=== PATIENT | male | born 1940 | race Hispanic/Latino ===

== ENCOUNTER 2016-10-04 20:09 | Inpatient (IN) | payer MEDICARE, OTHER, BC ==
[2016-10-04] MEDS ORDERED: Sodium Chloride 0.9% 1,000 ML IV ONE (20:37)
--- NOTE | 2016-10-04 21:06 | C.PDOC ---
History Of Present Illness Pt c/o hematuria. He has a Kimball catheter in place, but urine is bloody. Time Seen by Provider: 10/04/16 20:29 Chief Complaint (Nursing): Male Genitourinary History Per: Patient Onset/Duration Of Symptoms: Days (1) Current Symptoms Are (Timing): Worse Severity: Moderate Quality Of Discomfort: Unable To Describe Associated Symptoms: Urinary Symptoms Alleviating Factors: None Additional History Per: Prior Records Past Medical History Reviewed: Historical Data, Nursing Documentation, Vital Signs Vital Signs: Last Vital Signs Temp 99.1 F 10/04/16 20:15 Pulse 97 H 10/04/16 20:15 Resp 16 10/04/16 20:15 BP 150/74 10/04/16 20:15 Pulse Ox 94 L 10/04/16 23:25 - Medical History PMH: Benign Prostatic Hyperplasia (?) Family History: States: Unknown Family Hx - Social History Hx Alcohol Use: Yes Hx Substance Use: No - Immunization History Hx Tetanus Toxoid Vaccination: No Hx Influenza Vaccination: No Hx Pneumococcal Vaccination: No Review Of Systems Except As Marked, All Systems Reviewed And Found Negative. Constitutional: Negative for: Fever, Weakness Cardiovascular: Negative for: Chest Pain Respiratory: Negative for: Shortness of Breath Gastrointestinal: Negative for: Vomiting, Abdominal Pain Genitourinary: Positive for: Hematuria. Negative for: Scrotal Pain Musculoskeletal: Negative for: Neck Pain, Back Pain Skin: Negative for: Rash Neurological: Negative for: Weakness, Numbness, Seizures, Altered Mental Status Physical Exam - Physical Exam Appears: Non-toxic, No Acute Distress Skin: Normal Color, Warm, Dry Head: Atraumatic, Normacephalic Eye(s): bilateral: PERRL, EOMI Neck: Normal ROM, Supple Cardiovascular: Rhythm Regular Respiratory: Normal Breath Sounds, No Accessory Muscle Use Gastrointestinal/Abdominal: Soft, No Tenderness, No Distention Back: No CVA Tenderness Male Genital: No Testicular Tenderness, No Testicular Swelling, No Inguinal Tenderness, No Inguinal Swelling, No Scrotal Swelling, Other (Kimball catheter in place draining bloody urine.) Extremity: Normal ROM, No Pedal Edema, No Calf Tenderness Neurological/Psych: Oriented x3, Normal Motor, Normal Sensation ED Course And Treatment - Laboratory Results Result Diagrams: 10/04/16 21:18 10/04/16 21:18 Lab Interpretation: Abnormal Interpretation Of Abnormal: Mild hypnatremia ECG: Interpreted By Me, Viewed By Me ECG Interpretation: No Acute Changes Rate From EC O2 Sat by Pulse Oximetry: 94 - Radiology CXR: Interpreted by Me, Viewed By Me CXR Interpretation: Yes: No Acute Disease - Physician Consult Information Physician Contacted: Shelley Leonardo Outcome Of Conversation: He wants to take pt to the OR tomorrow for Cystoscopy. Progress - Interventions Interventions:: Observation, Intravenous fluid - Data Reviewed Data Reviewed: Lab, Diagnostic imaging, EKG, Old records - Patient Status Patient status: Partially improved - Continuity of Care Discussed patient case with:: Patient, ED Nurse, On-call PMD-pt unassigned Discussed pt. case with education consultant/specialty: Urology - Patient Plan Patient Plan: Admission Disposition Discussed With : Lisa Kaplan Comment: She accepted pt on her service and gave admitting orders to the nurse. Doctor Will See Patient In The: Hospital Counseled Patient/Family Regarding: Studies Performed, Diagnosis - Disposition Disposition: HOSPITALIZED Disposition Time: 23:00 Condition: FAIR - Clinical Impression Clinical Impression: Hematuria
[2016-10-04] MEDS ORDERED: Sodium Chloride 0.9% 1,000 ML ONE (21:18)
[2016-10-04 21:30] LABS: BASO % 0.4 % (0.0-2.0); EOS % 0.1 % (0.0-4.0); HEMATOCRIT 36.5 % (35.0-51.0); LYMPH # 0.8 K/uL (1.0-4.3); LYMPH % 9.3 % (20.0-40.0); MEAN CELL VOLUME 84.8 fL (80.0-94.0); MEAN CORPUSCULAR HEMOGLOBIN 28.8 pg (27.0-31.0); MEAN PLATELET VOLUME 8.5 fL (7.2-11.7); MONO # 1.1 K/uL (0.0-0.8); PLATELET COUNT 323 K/uL (130-400); WHITE BLOOD COUNT 8.6 K/uL (4.8-10.8)
[2016-10-04 21:34] LABS: CHLORIDE 88 mmol/L (98-107)
[2016-10-04 21:35] LABS: POTASSIUM 4.2 mmol/L (3.6-5.2); SODIUM 121 mmol/L (132-148)
[2016-10-04 21:37] LABS: AST/SGOT 46 U/L (17-59); BILIRUBIN,TOTAL 0.8 mg/dL (0.2-1.3); CARBON DIOXIDE 22 mmol/L (22-30); GFR AFRICAN-AMERICAN > 60; RBC URINE 61579 /hpf (0-3); URINE BACTERIA MOD (<OCC); URINE BILIRUBIN NEGATIVE (NEGATIVE); URINE BLOOD 3+ (NEGATIVE); URINE COLOR Yellow (YELLOW); URINE GLUCOSE (UA) 1+ mg/dL (Normal); URINE KETONE 1+ mg/dL (NEGATIVE); URINE PROTEIN 2+ mg/dL (NEGATIVE); URINE UROBILINOGEN NORMAL mg/dL (0.2-1.0); WBC URINE 68 /hpf (0-5)
[2016-10-04 21:38] LABS: ALB/GLOB RATIO 1.4 (1.0-2.1); ALKALINE PHOSPHATASE 59 U/L (38-126); ALT/SGPT 45 U/L (21-72); BLOOD UREA NITROGEN 10 mg/dL (9-20); CALCIUM 7.8 mg/dl (8.6-10.4); GLUCOSE,RANDOM 104 mg/dL (75-110); TOTAL PROTEIN 6.3 g/dL (6.3-8.3); URINE LEUKOCYTE ESTERASE 1+ Leu/uL (Negative)
[2016-10-04 21:43] LABS: INR 1.3
[2016-10-04 23:21] LABS: LARGE PLATELETS PRESENT; NEUTROPHIL 71 % (50-75); SMUDGE CELLS PRESENT; TOTAL CELLS COUNTED 100
[2016-10-04] MEDS: Dextrose 5%/0.45% NS 1,000 ML IV SCH (23:51)
[2016-10-05 07:36] LABS: BASO % 0.3 % (0.0-2.0); EOS % 0.4 % (0.0-4.0); LYMPH # 0.8 K/uL (1.0-4.3); LYMPH % 11.8 % (20.0-40.0); MEAN CELL VOLUME 84.3 fL (80.0-94.0); MEAN CORPUSCULAR HEMOGLOBIN 29.3 pg (27.0-31.0); MEAN CORPUSCULAR HGB CONC 34.7 g/dL (33.0-37.0); MEAN PLATELET VOLUME 8.7 fL (7.2-11.7); MONO # 1.2 K/uL (0.0-0.8); MONO % 18.3 % (0.0-10.0); RED CELL DISTRIBUTION WIDTH 12.4 % (11.5-14.5); WHITE BLOOD COUNT 6.6 K/uL (4.8-10.8)
[2016-10-05 07:59] LABS: CHLORIDE 92 mmol/L (98-107); SODIUM 125 mmol/L (132-148)
[2016-10-05 08:00] LABS: POTASSIUM 4.3 mmol/L (3.6-5.2)
[2016-10-05 08:02] LABS: ALB/GLOB RATIO 1.3 (1.0-2.1); ALKALINE PHOSPHATASE 51 U/L (38-126); ALT/SGPT 39 U/L (21-72); AST/SGOT 41 U/L (17-59); BILIRUBIN,TOTAL 0.7 mg/dL (0.2-1.3); BLOOD UREA NITROGEN 7 mg/dL (9-20); CALCIUM 7.6 mg/dl (8.6-10.4); CARBON DIOXIDE 25 mmol/L (22-30); GFR AFRICAN-AMERICAN > 60; GLUCOSE,RANDOM 102 mg/dL (75-110); TOTAL PROTEIN 5.6 g/dL (6.3-8.3)
--- NOTE | 2016-10-05 08:38 | RAD ---
HISTORY: Pre-op COMPARISON: No prior. FINDINGS: LUNGS: No active pulmonary disease. PLEURA: No significant pleural effusion identified, no pneumothorax apparent. CARDIOVASCULAR: Normal. OSSEOUS STRUCTURES: No significant abnormalities. VISUALIZED UPPER ABDOMEN: Normal. OTHER FINDINGS: None. IMPRESSION: No active disease.
--- NOTE | 2016-10-05 10:00 | CP.PCM.HP ---
History of Present Illness - History of Present Illness History of Present Illness: pt came in for hematurea and [place] of foly cath by clots Present on Admission - Present on Admission Any Indicators Present on Admission: Yes Urinary Catheter: Yes Review of Systems - Review of Systems Systems not reviewed;Unavailable: Acuity of Condition - Constitutional Constitutional: As Per HPI - EENT Eyes: As Per HPI Ears: As Per HPI Nose/Mouth/Throat: As Per HPI - Cardiovascular Cardiovascular: As Per HPI - Respiratory Respiratory: As Per HPI - Gastrointestinal Gastrointestinal: As Per HPI - Genitourinary Genitourinary: Difficulty Urinating Additional comments: f cath cloged - Integumentary Integumentary: As Per HPI - Neurological Neurological: As Per HPI - Psychiatric Psychiatric: As Per HPI - Endocrine Endocrine: As Per HPI, Polydipsia Past Patient History - Past Medical History & Family History Past Medical History?: No - Past Social History Smoking Status: Former Smoker - MUSCULOSKELETAL/RHEUMATOLOGICAL Hx Falls: No - PSYCHIATRIC Hx Substance Use: No - SURGICAL HISTORY Hx Surgeries: No - ANESTHESIA Hx Anesthesia: No Meds Allergies/Adverse Reactions: Allergies Allergy/AdvReac Type Severity Reaction Status Date / Time No Known Allergies Allergy Verified 10/04/16 20:19 Physical Exam - Constitutional Appears: Non-toxic - Head Exam Head Exam: NORMAL INSPECTION - Eye Exam Eye Exam: Normal appearance Pupil Exam: NORMAL ACCOMODATION - ENT Exam ENT Exam: Mucous Membranes Moist - Neck Exam Neck exam: Positive for: Normal Inspection - Respiratory Exam Respiratory Exam: Clear to Auscultation Bilateral, NORMAL BREATHING PATTERN - Cardiovascular Exam Cardiovascular Exam: REGULAR RHYTHM - GI/Abdominal Exam GI & Abdominal Exam: Normal Bowel Sounds - Rectal Exam Rectal Exam: NORMAL INSPECTION - Exam Exam: NORMAL INSPECTION - Extremities Exam Extremities exam: Positive for: normal inspection - Back Exam Back exam: NORMAL INSPECTION Results - Vital Signs Recent Vital Signs: Last Vital Signs Temp 98 F 10/05/16 08:44 Pulse 71 10/05/16 08:44 Resp 20 10/05/16 08:44 BP 127/69 10/05/16 08:44 Pulse Ox 95 10/05/16 08:44 - Labs Result Diagrams: 10/05/16 07:18 10/05/16 07:18 Labs: Laboratory Results - last 24 hr 10/05/16 10/05/16 07:18 07:18 WBC 6.6 RBC 3.92 L Hgb 11.5 L Hct 33.0 L MCV 84.3 MCH 29.3 MCHC 34.7 RDW 12.4 Plt Count 304 MPV 8.7 Neut % (Auto) 69.2 Lymph % (Auto) 11.8 L [place] % (Auto) 18.3 H Eos % (Auto) 0.4 Baso % (Auto) 0.3 Neut # 4.6 Lymph # 0.8 L [place] # 1.2 H Eos # 0.0 Baso # 0.0 Sodium 125 L Potassium 4.3 Chloride 92 L Carbon Dioxide 25 Anion Gap 13 BUN 7 L Creatinine 0.5 L Est GFR ( Amer) > 60 Est GFR (Non-Af Amer) > 60 Random Glucose 102 Calcium 7.6 L Total Bilirubin 0.7 AST 41 ALT 39 Alkaline Phosphatase 51 Total Protein 5.6 L Albumin 3.1 L Globulin 2.4 Albumin/Globulin Ratio 1.3 Assessment & Plan - Assessment and Plan (Free Text) Assessment: hematurea coged f cath bph aneamia Plan: as per dr alvarenga - Date & Time Date: 10/05/16 Time: 10:02
[2016-10-05] MEDS: Dextrose 5%/0.45% NS 1,000 ML IV SCH (11:04)
--- NOTE | 2016-10-05 12:04 | CARD ---
APPROVED REPORT EKG Measurement Heart [id number] <Conclusion> Normal sinus rhythm Normal ECG
[2016-10-05] MEDS ORDERED: cefTRIAXone IV 1 gm in Dextros 50 ML IVPB ONE (13:48)
[2016-10-05] MEDS ORDERED: Iohexol 240 (50 ml) ONE (13:49)
[2016-10-05] MEDS ORDERED: Propofol 10 mg/ml Inj (20 ML) ONE (13:50)
[2016-10-05] MEDS ORDERED: Midazolam 2 MG/2 ML VIAL ONE (13:50)
[2016-10-05] MEDS ORDERED: Lactated Ringer's 1,000 ML IV ONE (13:55)
--- NOTE | 2016-10-05 14:50 | CP.PCM.CON ---
Past Patient History - Past Medical History & Family History Past Medical History?: No - Past Social History Smoking Status: Former Smoker - MUSCULOSKELETAL/RHEUMATOLOGICAL Hx Falls: No - PSYCHIATRIC Hx Substance Use: No - SURGICAL HISTORY Hx Surgeries: No - ANESTHESIA Hx Anesthesia: No Meds Allergies/Adverse Reactions: Allergies Allergy/AdvReac Type Severity Reaction Status Date / Time No Known Allergies Allergy Verified 10/04/16 20:19 - Medications Medications: Current Medications Dextrose/Sodium Chloride (Dextrose 5%/0.45% Ns 1000 Ml) 1,000 mls @ 80 mls/hr IV .[id number] [place] Last Admin: 10/05/16 11:04 Dose: Not Given Influenza Virus Vaccine (Afluria) 45 mcg IM .ONCE ONE Stop: 10/07/16 14:01 Pneumococcal Polyvalent Vaccine (Pneumovax 23 Vaccine) 0.5 ml IM .ONCE ONE Stop: 10/07/16 14:01 Results - Vital Signs Recent Vital Signs: Last Vital Signs Temp 98 F 10/05/16 08:44 Pulse 71 10/05/16 08:44 Resp 20 10/05/16 08:44 BP 127/69 10/05/16 08:44 Pulse Ox 95 10/05/16 08:44 - Labs Result Diagrams: 10/05/16 07:18 10/05/16 07:18 Labs: Laboratory Results - last 24 hr 10/05/16 10/05/16 07:18 07:18 WBC 6.6 RBC 3.92 L Hgb 11.5 L Hct 33.0 L MCV 84.3 MCH 29.3 MCHC 34.7 RDW 12.4 Plt Count 304 MPV 8.7 Neut % (Auto) 69.2 Lymph % (Auto) 11.8 L [place] % (Auto) 18.3 H Eos % (Auto) 0.4 Baso % (Auto) 0.3 Neut # 4.6 Lymph # 0.8 L [place] # 1.2 H Eos # 0.0 Baso # 0.0 Sodium 125 L Potassium 4.3 Chloride 92 L Carbon Dioxide 25 Anion Gap 13 BUN 7 L Creatinine 0.5 L Est GFR ( Amer) > 60 Est GFR (Non-Af Amer) > 60 Random Glucose 102 Calcium 7.6 L Total Bilirubin 0.7 AST 41 ALT 39 Alkaline Phosphatase 51 Total Protein 5.6 L Albumin 3.1 L Globulin 2.4 Albumin/Globulin Ratio 1.3 Assessment & Plan - Assessment and Plan (Free Text) Assessment: IMP: HEMATURIA RETENTION ENLARGED PROSTATE - Date & Time Date: 10/05/16 Time: 13:45
[2016-10-05] MEDS ORDERED: HYDROmorphone 0.5 mg/0.5 ml ISec IVP PRN (14:52)
--- NOTE | 2016-10-05 14:52 | PCM.SURG1 ---
Surgeon's Initial Post Op Note - Surgeon's Notes Surgeon: María REYNOSO Breastfeeding Program Coordinator: NONE Type of Anesthesia: General LMA Pre-Operative Diagnosis: HEMATURIA Operative Findings: BLEEDING OF PROSTATIC ORIGIN Post-Operative Diagnosis: SAME Operation Performed: CYSTO. EVACUATION OF CLOTS. CYSTOGRAM. FULGURATION OF PROSTATE Specimen/Specimens Removed: NONE Estimated Blood Loss: EBL {In ML}: 30 Blood Products Given: N/A Post-Op Condition: Good Date of Surgery/Procedure: 10/05/16 Time of Surgery/Procedure: 14:52
[2016-10-05] MEDS ORDERED: Lactated Ringer's 1,000 ML IV SCH (15:00)
--- NOTE | 2016-10-05 15:39 | RAD ---
HISTORY: HEMATURIA COMPARISON: No prior. FINDINGS: BOWEL: There are dilated bowel lobes seen without evidence of high-grade bowel obstruction. BONES: Advanced degenerative changes seen at the lower spine. OTHER FINDINGS: Multiple low spot images of the abdomen were obtained and submitted for evaluation. This study demonstrate the contrast in the urinary bladder. There are multiple cystic formation around the bladder/ at the wall of the bladder suggestive of multiple diverticula. The differential diagnosis includes cystitis cystica. The postvoid image demonstrates no residual contrast in the bladder. IMPRESSION: Cystic formation around the bladder likely at the wall of the bladder may represent multiple diverticula. Other etiology including infectious process such as cystitis cystica is not excluded.
[2016-10-05 16:13] VITALS: RESP 20
--- NOTE | 2016-10-05 16:47 | RAD ---
PROCEDURE: Cystogram HISTORY: HEMATURIA COMPARISON: Not available TECHNIQUE: Fluoroscopy was provided intraoperatively for a cystogram performed by Dr. Shelley Leonardo. Total time of fluoroscopy was 1.7 seconds. FINDINGS: A single fluoroscopic spot film is submitted. This film is on file for review. IMPRESSION: Fluoroscopy provided.
[2016-10-06 07:23] LABS: HEMATOCRIT 34.3 % (35.0-51.0); MEAN CELL VOLUME 84.8 fL (80.0-94.0); MEAN CORPUSCULAR HEMOGLOBIN 28.8 pg (27.0-31.0); MEAN PLATELET VOLUME 8.3 fL (7.2-11.7); WHITE BLOOD COUNT 7.3 K/uL (4.8-10.8)
[2016-10-06 07:24] LABS: CHLORIDE 91 mmol/L (98-107); POTASSIUM 4.1 mmol/L (3.6-5.2); SODIUM 124 mmol/L (132-148)
[2016-10-06 07:27] LABS: BLOOD UREA NITROGEN 9 mg/dL (9-20); CARBON DIOXIDE 23 mmol/L (22-30); GFR AFRICAN-AMERICAN > 60
[2016-10-06 07:28] LABS: CALCIUM 7.6 mg/dl (8.6-10.4); GLUCOSE,RANDOM 99 mg/dL (75-110)
[2016-10-06] MEDS: Multivitamin With Minerals Tab PO SCH (10:36)
--- NOTE | 2016-10-06 11:59 | CP.PCM.PN ---
Subjective - Date & Time of Evaluation Date of Evaluation: 10/06/16 Time of Evaluation: 11:56 - Subjective Subjective: hematurea s/p cystscopy on bladder irigation still bloody Objective - Vital Signs/Intake and Output Vital Signs (last 24 hours): Temp Pulse Resp BP Pulse Ox 98.8 F 84 20 121/76 96 10/06/16 08:17 10/06/16 08:17 10/06/16 08:17 10/06/16 08:17 10/06/16 08:17 Intake and Output: 10/06/16 10/06/16 06:59 18:59 Intake Total 9240 Output Total 50067 Balance -1560 - Medications Medications: Current Medications Docusate Sodium (Colace) 100 mg PO TID [facility] Last Admin: 10/06/16 10:36 Dose: 100 mg Dextrose/Sodium Chloride (Dextrose 5%/0.45% Ns 1000 Ml) 1,000 mls @ 80 mls/hr IV .[id number] [facility] Last Admin: 10/05/16 11:04 Dose: Not Given Ceftriaxone Sodium 1 gm/ (Sodium Chloride) 100 mls @ 100 mls/hr IVPB DAILY [facility] Last Admin: 10/06/16 10:36 Dose: 100 mls/hr Lactated Ringer's (Lactated Ringer's) 1,000 mls @ 100 mls/hr IV .Q10H [facility] Influenza Virus Vaccine (Afluria) 45 mcg IM .ONCE ONE Stop: 10/07/16 14:01 Multivitamins/Minerals (Therapeutic-M Tab) 1 tab PO DAILY [facility] Last Admin: 10/06/16 10:36 Dose: 1 tab Pneumococcal Polyvalent Vaccine (Pneumovax 23 Vaccine) 0.5 ml IM .ONCE ONE Stop: 10/07/16 14:01 - Labs Labs: 10/06/16 07:04 10/06/16 07:01 PT 14.6 SECONDS (9.7-12.2) H 10/04/16 21:18 INR 1.3 10/04/16 21:18 APTT 30 SECONDS (21-34) 10/04/16 21:18 - Constitutional Appears: Older Than Stated Age - Head Exam Head Exam: NORMAL INSPECTION - Eye Exam Eye Exam: Normal appearance Pupil Exam: NORMAL ACCOMODATION - ENT Exam ENT Exam: Normal Exam - Neck Exam Neck Exam: Normal Inspection - Respiratory Exam Respiratory Exam: NORMAL BREATHING PATTERN - Cardiovascular Exam Cardiovascular Exam: REGULAR RHYTHM - GI/Abdominal Exam GI & Abdominal Exam: Normal Bowel Sounds - Rectal Exam Rectal Exam: NORMAL INSPECTION - Exam Additional comments: hematuria - Extremities Exam Extremities Exam: Normal Inspection - Back Exam Back Exam: NORMAL INSPECTION - Psychiatric Exam Psychiatric exam: Normal Affect - Skin Skin Exam: Normal Color Assessment and Plan - Assessment and Plan (Free Text) Assessment: bph hematuria Plan: as per orders
[2016-10-06] MEDS: Dextrose 5%/0.45% NS 1,000 ML IV SCH (13:35)
[2016-10-07] MEDS: Dextrose 5%/0.45% NS 1,000 ML IV SCH (00:57)
--- NOTE | 2016-10-07 04:21 | CON ---
DATE: 10/06/2016 UROLOGY CONSULTATION CONSULTATION REQUESTED BY: Lisa Kaplan MD UROLOGY CONSULTATION FILLED BY: Shelley Leonardo MD REASON FOR CONSULTATION: Hematuria. The patient is a 76-year-old male with gross hematuria. The patient has had intermittent hematuria for 1-2 days. The patient reports slow urinary stream. He reports nocturia x 4. There is no history of urinary tract infection, no history of urolithiasis. The patient reports that he has had episodes of hematuria. There have been at least 4 episodes over the past 10 years. The patient was told he had an enlarged prostate. The patient had previous cysto scopy, perhaps once or twice. The patient is not sexually active. The patient reports no previous surgery. No history of hypertension, diabetes, pneumonia, asthma, tuberculosis. No blackouts, seizures, or st rokes. FAMILY HISTORY: The patient has a positive family history of prostate cancer, namely involving the p immanuel's father. ALLERGIES: None. MEDICATIONS: The patient has been taking an antibiotic for a recent of sinus infection. PAST SURGICAL HISTORY: No previous surgery. SOCIAL HISTORY: The patient stopped smoking approximately 4 years ago. The patient lives alone. 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 PHYSICAL EXAMINATION: GENERAL: The patient is a well-developed, well-nourished elderly male. ABDOMEN: Soft, nondistended. There is mild suprapubic tenderness. GENITALIA: Without inflammation. There is bloody urine via the Kimball catheter. IMPRESSION: 1. Hematuria. 2. History of enlarged prostate. Differential diagnosis of hematuria includes infection, neoplasia, and/or urolithiasis. RECOMMENDATIONS AND PLAN: 1. Urine culture. 2. Urine cytology. 3. Serum PSA. 4. CT scan. 5. Cystoscopy. Further therapy is to follow according to patient's clinical course. Thank you for recommending the patient for urology consultation. Shelley Leonardo MD cc: [phone] TT: 10/07/2016 04:20:21 Confirmation # [id number] Dictation # [id number] vn
[2016-10-07] MEDS ORDERED: Iodixanol 320 MG/ML 100 ML BOTTLE IV ONE (08:36)
--- NOTE | 2016-10-07 08:46 | OP ---
PROCEDURE DATE: 10/05/2016 PREOPERATIVE DIAGNOSES: Hematuria. Urinary retention. POSTOPERATIVE DIAGNOSES: Hematuria. Urinary retention. Bleeding of prostatic origin. Prostatic en largement. PROCEDURE: Cystoscopy. Evacuation of bladder clots. Fulguration of prostatic bleeding. Cystogram. Procedure was performed under video endoscopic control as well as under fluoroscopic control. PROCEDURE FOLLOWS: The patient was placed in lithotomy position. The genitalia prepped and drape d sterilely. The patient had received antibiotic therapy. Anesthesia was provided by the anesthesio logist. A 22-Thai cystoscope sheath was introduced under direct vision. Urethra, prostate and bladder were inspected with 30-degree and 70-degree lenses. FINDINGS: The anterior urethra was normal without evidence of stricture or mucosal lesions. The prostatic urethra was markedly elongated. The prostatic urethra was greater than 7 cm in length. There was moderate bleeding from the prostatic urethral mucosal surface at multiple sites. The bladder was inspected. However, there was no visibility in the bladder due to a large amount of clots. The clots were removed from the bladder using the Mehnaz syringe. Thereafter, the bladder was inspected. There was noted to be severe bladder trabeculation with cellu les. Iodinated contrast dye was instilled for performance of the cystogram. Fluoroscopic views revealed s evere bladder trabeculation and cellule formation. In addition, there was marked elevation of the bl adder base above the pubic symphysis, consistent with prostatic hypertrophy. Fulguration of the prostate was performed with ball electrode and electrocautery. However, the bleed ing could not be adequately controlled with this maneuver. The cystoscope and sheath were removed. A 26-Thai continuous flow resectoscope sheath was introduc ed under direct vision. Thereafter, the resectoscope with the ball electrode was employed. The blee ding from the prostate was well controlled with electrocautery and the rollerball electrode. Multiple sites of the prostate were fulgurated. Bleeding was especially prominent at the bladder nec k. Bleeding also involved the lateral lobes and the floor of the prostate. Hemostasis was complete. The resectoscope and sheath were removed. A Kimball catheter was inserted. Bladder drainage was clear. Rectal examination was performed. Prostate was markedly enlarged, greater than 75 mL in volume. Pro state was smooth and firm and symmetric without fixation, induration, or nodularity. The patient was returned to the supine position. The patient was transferred to the recovery room in satisfactory condition. Shelley Leonardo MD cc: [phone] TT: 10/07/2016 08:45:55 en
[2016-10-07] MEDS: Multivitamin With Minerals Tab PO SCH (10:33)
--- NOTE | 2016-10-07 11:12 | CP.PCM.PN ---
Subjective - Date & Time of Evaluation Date of Evaluation: 09/30/16 Time of Evaluation: 11:09 - Subjective Subjective: pt seen by dr alvarenga cath removed ct don feels ok Objective - Vital Signs/Intake and Output Vital Signs (last 24 hours): Temp Pulse Resp BP Pulse Ox 97.9 F 80 20 124/68 96 10/07/16 08:59 10/07/16 08:59 10/07/16 08:59 10/07/16 08:59 10/07/16 08:59 Intake and Output: 10/07/16 10/07/16 06:59 18:59 Output Total 700 Balance -700 - Medications Medications: Current Medications Docusate Sodium (Colace) 100 mg PO TID [facility] Last Admin: 10/07/16 10:34 Dose: 100 mg Home Med (Cefadroxil) 500 mg PO BID [facility] Dextrose/Sodium Chloride (Dextrose 5%/0.45% Ns 1000 Ml) 1,000 mls @ 80 mls/hr IV .[id number] [facility] Last Admin: 10/07/16 00:57 Dose: 80 mls/hr Ceftriaxone Sodium 1 gm/ (Sodium Chloride) 100 mls @ 100 mls/hr IVPB DAILY [facility] Last Admin: 10/07/16 10:34 Dose: 100 mls/hr Lactated Ringer's (Lactated Ringer's) 1,000 mls @ 100 mls/hr IV .Q10H [facility] Influenza Virus Vaccine (Afluria) 45 mcg IM .ONCE ONE Stop: 10/07/16 14:01 Multivitamins/Minerals (Therapeutic-M Tab) 1 tab PO DAILY [facility] Last Admin: 10/07/16 10:33 Dose: 1 tab Pneumococcal Polyvalent Vaccine (Pneumovax 23 Vaccine) 0.5 ml IM .ONCE ONE Stop: 10/07/16 14:01 Tamsulosin HCl (Flomax) 0.4 mg PO DAILY [facility] Last Admin: 10/07/16 10:33 Dose: 0.4 mg - Labs Labs: 10/06/16 07:04 10/06/16 07:01 PT 14.6 SECONDS (9.7-12.2) H 10/04/16 21:18 INR 1.3 10/04/16 21:18 APTT 30 SECONDS (21-34) 10/04/16 21:18 - Constitutional Appears: Non-toxic - Head Exam Head Exam: NORMAL INSPECTION - Eye Exam Eye Exam: EOMI Pupil Exam: NORMAL ACCOMODATION - ENT Exam ENT Exam: Mucous Membranes Moist - Neck Exam Neck Exam: Tenderness - Respiratory Exam Respiratory Exam: Clear to Ausculation Bilateral - Cardiovascular Exam Cardiovascular Exam: Clicks - GI/Abdominal Exam GI & Abdominal Exam: Soft - Rectal Exam Rectal Exam: NORMAL INSPECTION - Exam Exam: NORMAL INSPECTION External exam: NORMAL EXTERNAL EXAM - Extremities Exam Extremities Exam: Normal Inspection - Back Exam Back Exam: NORMAL INSPECTION - Neurological Exam Neurological Exam: Normal Gait - Psychiatric Exam Psychiatric exam: Normal Mood - Skin Skin Exam: Normal Color Assessment and Plan - Assessment and Plan (Free Text) Assessment: BPH HEAMATURIA UTI Plan: DISCHARGE CONT CIPRO
--- NOTE | 2016-10-07 13:33 | CT ---
PROCEDURE: CT Abdomen and Pelvis with and without intravenous contrast HISTORY: Hematuria COMPARISON: None available TECHNIQUE: Axial images of the abdomen were obtained in the pre contrast, portal venous and delayed phases of enhancement. Coronal and sagittal reformats were generated and reviewed. Contrast dose: 100 mL Visipaque 320 Radiation dose: Total exam DLP = 2289.28 mGy-cm. This CT exam was performed using one or more of the following dose reduction techniques: Automated exposure control, adjustment of the mA and/or kV according to patient size, and/or use of iterative reconstruction technique. FINDINGS: LOWER THORAX: Small mqec-[id number]-dnfd-right pleural effusions. Minimal bibasilar atelectasis. No visible pneumothorax. Mild distal esophageal wall thickening. LIVER: 3.3 x 3.7 cm low-density lesion within the medial left hepatic lobe, appears consistent with a cyst. Additional too small to characterize hepatic foci, statistically likely cysts or hemangiomas. GALLBLADDER AND BILE DUCTS: Contracted gallbladder appears grossly unremarkable. PANCREAS: Unremarkable. SPLEEN: Punctate splenic calcification, likely granuloma. ADRENALS: Unremarkable. KIDNEYS AND URETERS: The kidneys enhance symmetrically. 12 mm probable left renal cyst. No evidence of hydronephrosis or obstructing calculus. Bilateral tortuous ureters with narrowing distally of unclear significance. Small filling defects within the right distal ureter (series 9, image 54). VASCULATURE: Atherosclerotic calcifications. No aortic aneurysm. BOWEL: The stomach is nondistended. Lack of oral contrast limits evaluation for bowel pathology. Bowel loops appear within normal limits of caliber without evidence of obstruction. APPENDIX: No secondary signs of acute appendicitis. PERITONEUM: No significant free fluid. No definite free air. LYMPH NODES: Prominent lymph nodes noted adjacent to the urinary bladder measuring up to 8 mm in short axis. Enlarged along the left pelvic sidewall measuring approximately 14 mm in short axis. BLADDER: Thick-walled under distended urinary bladder contains air; correlate clinically for recent instrumentation. Alternatives including cystitis not excluded. Punctate foci possibly of air seen along the urinary bladder wall; correlate clinically for possibility of emphysematous cystitis. REPRODUCTIVE: Heterogeneous enlarged prostate gland measuring approximately 10.0 x 9. BONES: Multilevel degenerative changes. OTHER FINDINGS: 11 mm fat containing umbilical hernia. IMPRESSION: Markedly enlarged/heterogeneous appearance of the prostate gland; correlate clinically with PSA and [place]. Small filling defects within the right distal ureter seen on delayed phases. Recommend further evaluation with ureterscopy if clinically feasible. Multiple small outpouchings at the urinary bladder wall may represent multiple diverticula. Other etiology including infectious process such as cystitis cystica is not excluded. Recommend correlation with urinalysis and cystoscopy if clinically feasible. 12 mm probable left renal cyst. Small zspa-[id number]-right pleural effusions. 3.3 x 3.7 cm low-density lesion within the medial left hepatic lobe, appears consistent with a cyst. Additional too small to characterize hepatic foci, statistically likely cysts or hemangiomas. Additional findings as above.
[2016-10-07] MEDS ORDERED: Pneumococcal 23-Valent Vaccine IM ONE (14:00)
[2016-10-07] MEDS ORDERED: Influenza Virus Vaccine 45 mcg/0.5 ml Syr IM ONE (14:00)
[2016-10-07 16:10] VITALS: BP 112/71; PULSE 92; TEMP 97.6; O2SAT 98
[2016-10-07] MEDS ORDERED: CEFADROXIL 500 MG PO SCH (18:00)
[2016-10-09 00:57] LABS: ESTIM. PROBABILITY CANCER >50 Percent; TOTAL PSA 39.2 ng/mL (<=4.0)
--- NOTE | 2016-10-23 14:58 | DS ---
The patient had hematuria and the catheter was blocked by the clots. He was seen by his He has proba riley history of benign prostatic hypertrophy. He does not smoke. His vitals were okay. He has no al lergies. Blood pressure was 127/69. His blood work was 11.5 hemoglobin and he has no diabetes. His kidneys are fine and the rest of the lab was fine. His urinalysis ____ sugar was 127. His calcium was a little bit low. His PSA is very high 39.2 and the cancer risk is more than 50. He as taken by Dr. Leonardo for the operating room and he had the cystoscopy. ____ the procedure, he was having ___ _ the procedure and he was cleared to go home by Dr. Leonardo after he was able to urinate fine. He w as seen on 10/07. The catheter was removed and the patient was feeling fine and he was urinating good and he was able to be discharged ____ clearance of Dr. Leonardo and his condition was very stable. The patient has benign prostatic hypertrophy, hematuria, and urinary tract infection. He was going home on Cipro to continue at home and follow up with Dr. Leonardo. Lisa Kaplan MD cc: [id number] TT: 10/23/2016 14:57:23 adrienne
== END 2016-10-07 20:31 | disposition home or self-care (01) | DRG 713 ==
LOC: C.ER 20:09 → C.9E 23:26 → C.5T 10-05 00:01 → C.6T 10-05 22:15
PROVIDERS: ADMIT Internal Medicine; ATTEND Internal Medicine
PROC: 0TCC8ZZ Extirpation of Matter from Bladder Neck, Via Natural or Artificial Opening Endoscopic (ICD-10-PCS; 2016-10-05)
PROC: BT00ZZZ Plain Radiography of Bladder (ICD-10-PCS; 2016-10-05)
PROC: 0V508ZZ Destruction of Prostate, Via Natural or Artificial Opening Endoscopic (ICD-10-PCS; principal; 2016-10-05 13:30)
DX: N42.1 Congestion and hemorrhage of prostate (principal); N40.1 Benign prostatic hyperplasia with lower urinary tract symptoms; N32.89 Other specified disorders of bladder; R33.8 Other retention of urine; N39.0 Urinary tract infection, site not specified; E87.1 Hypo-osmolality and hyponatremia; Z80.42 Family history of malignant neoplasm of prostate; Z87.891 Personal history of nicotine dependence

== ENCOUNTER 2016-10-10 06:45 | Observation (INO) | payer MEDICARE, OTHER, BC ==
--- NOTE | 2016-10-10 07:23 | C.PDOC ---
History Of Present Illness 76-year-old male, presents to the emergency department with complaints of inability to urinate. Time Seen by Provider: 10/10/16 07:08 Chief Complaint (Nursing): Male Genitourinary History Per: Patient History/Exam Limitations: no limitations Past Medical History Reviewed: Historical Data, Nursing Documentation, Vital Signs Vital Signs: Last Vital Signs Temp 98 F 10/10/16 06:51 Pulse 92 H 10/10/16 06:51 Resp 20 10/10/16 06:51 BP 166/78 H 10/10/16 06:51 Pulse Ox 96 10/10/16 06:51 - Medical History PMH: Benign Prostatic Hyperplasia (?) - [facility] Procedures DESTRUCTION OF PROSTATE, ENDO (10/04/16) EXTIRPATION OF MATTER FROM BLADDER NECK, ENDO (10/04/16) PLAIN RADIOGRAPHY OF BLADDER (10/04/16) Family History: States: Unknown Family Hx - Social History Hx Alcohol Use: Yes Hx Substance Use: No - Immunization History Hx Tetanus Toxoid Vaccination: No Hx Influenza Vaccination: No Hx Pneumococcal Vaccination: No Review Of Systems Except As Marked, All Systems Reviewed And Found Negative. Constitutional: Negative for: Fever Physical Exam - Physical Exam Appears: Non-toxic, No Acute Distress ED Course And Treatment O2 Sat by Pulse Oximetry: 96 Medical Decision Making Medical Decision Making: Impression: Plan: * Kimball Catheter * Bladder Scan * Reassess and Disposition Progress: - Scribe Statement The provider has reviewed the documentation as recorded by the Scribe Sreekanth Cerrato All medical record entries made by the Scribe were at my direction and personally dictated by me. I have reviewed the chart and agree that the record accurately reflects my personal performance of the history, physical exam, medical decision making, and the department course for this patient. I have also personally directed, reviewed, and agree with the discharge instructions and disposition.
--- NOTE | 2016-10-10 07:26 | C.PDOC ---
History Of Present Illness 76-year-old male, presents to the emergency department with complaints of inability to urinate since 02:00 this morning. Patient states he was discharged from hospital for same complaint three days ago. Patient states he was unable to reach Dr Leonardo this morning, resulting in him coming to the ED for evaluation. Symptoms associated with fullness sensation. Patient notes he is currently on Ciprofloxacin for UTI. Denies any abdominal pain at this time, no nausea/vomiting, fevers or chills. No other complaints at this time. Urologist: Dr Leonardo. Time Seen by Provider: 10/10/16 07:08 Chief Complaint (Nursing): Male Genitourinary History Per: Patient History/Exam Limitations: no limitations Onset/Duration Of Symptoms: Days Current Symptoms Are (Timing): Still Present Severity: Moderate Past Medical History Reviewed: Historical Data, Nursing Documentation, Vital Signs Vital Signs: Last Vital Signs Temp 98.5 F 10/10/16 11:10 Pulse 86 10/10/16 11:10 Resp 18 10/10/16 11:10 BP 156/88 H 10/10/16 11:10 Pulse Ox 98 10/10/16 11:10 - Medical History PMH: Benign Prostatic Hyperplasia (?) - [facility] Procedures DESTRUCTION OF PROSTATE, ENDO (10/04/16) EXTIRPATION OF MATTER FROM BLADDER NECK, ENDO (10/04/16) PLAIN RADIOGRAPHY OF BLADDER (10/04/16) Family History: States: Unknown Family Hx - Social History Hx Alcohol Use: Yes Hx Substance Use: No - Immunization History Hx Tetanus Toxoid Vaccination: No Hx Influenza Vaccination: No Hx Pneumococcal Vaccination: No Review Of Systems Except As Marked, All Systems Reviewed And Found Negative. Constitutional: Negative for: Fever, Chills Cardiovascular: Negative for: Chest Pain, Palpitations Respiratory: Negative for: Shortness of Breath Gastrointestinal: Negative for: Vomiting Genitourinary: Positive for: Other (inability to urinate). Negative for: Dysuria, Frequency Musculoskeletal: Negative for: Back Pain Skin: Negative for: Rash Neurological: Negative for: Weakness, Numbness, Headache, Dizziness Physical Exam - Physical Exam Appears: Non-toxic, No Acute Distress Skin: Warm, Dry, No Rash Head: Atraumatic, Normacephalic Eye(s): bilateral: Normal Inspection Nose: Normal Oral Mucosa: Moist Lips: Normal Appearing Neck: Normal ROM Chest: Symmetrical Cardiovascular: Rhythm Regular, No Murmur Respiratory: No Accessory Muscle Use, No Rhonchi, No Wheezing Gastrointestinal/Abdominal: Soft, Tenderness (mild suprapubic with distention), No Distention, No Rebound Male Genital: Normal Inspection, No Testicular Swelling Extremity: Normal ROM Neurological/Psych: Oriented x3, Normal Speech ED Course And Treatment O2 Sat by Pulse Oximetry: 96 Medical Decision Making Medical Decision Making: Impression: 70 y/o male with urinary retention Prior Visits Prior records show patient was seen and admitted on 10/05 for hematuria and clogged walton; pt had cystoscopy performed by Dr María Leonardo, discharged 10/07/16 Plan: * Bladder scan * Walton * Consult Jorden Progress: Bladder scan shows [id number]: Spoke with Dr Leonardo who recommends irrigating walton every 30min x4, and call if clear ED OBSERVATION Discharge: Yes Date of observation admission: 10/10/16 Time of observation admission: 07:54 - Observation admission statement Patient is being placed in observation because:: Hematuria and Urinary retention - Goals of Observation Goals of observation are:: Bladder irrigation and monitoring for any more clots - Progress Note Progress Note: 10/10/16 07:[address] Leonardo who recommends irrigation every 30minutes and to call back within 2 hours, if urine clear plan is to discharge, if urine remains bloody Dr Leonardo may schedule another procedures 10/10/16 09:07 Urine analysis shows blood, WBC count improved from last visit. Will continue monitoring and with irrigation 10/10/16 11:08 Urine clarity improved, blood tinge. Spoke with Dr Leonardo who states he will come to ED around 1400 if patient wants to wait he will see him, otherwise patient can be discharged and follow up in office. I discussed plan with patient and he feels comfortable going home with leg bag and will be discharged. Follow up instructions given Disposition Counseled Patient/Family Regarding: Need For Followup - Disposition Disposition: HOME/ ROUTINE Disposition Time: 11:08 Condition: STABLE - POA Present On Arrival: None - Clinical Impression Clinical Impression: Hematuria, Urinary retention - Scribe Statement The provider has reviewed the documentation as recorded by the Maryibhollis Cerrato All medical record entries made by the Maryibhollis were at my direction and personally dictated by me. I have reviewed the chart and agree that the record accurately reflects my personal performance of the history, physical exam, medical decision making, and the department course for this patient. I have also personally directed, reviewed, and agree with the discharge instructions and disposition.
[2016-10-10 08:01] LABS: RBC URINE 774 /hpf (0-3); URINE BACTERIA RARE (<OCC); URINE BILIRUBIN NEGATIVE (NEGATIVE); URINE BLOOD 3+ (NEGATIVE); URINE COLOR Yellow (YELLOW); URINE GLUCOSE (UA) NORMAL (Normal); URINE KETONE TRACE mg/dL (NEGATIVE); URINE LEUKOCYTE ESTERASE 1+ Leu/uL (Negative); URINE PROTEIN 1+ mg/dL (NEGATIVE); URINE UROBILINOGEN NORMAL mg/dL (0.2-1.0); WBC URINE 7 /hpf (0-5)
[2016-10-10 11:29] VITALS: BP 156/88; PULSE 86; RESP 18; TEMP 98.5
[2016-10-10 18:40] VITALS: O2SAT 96
== END 2016-10-10 11:09 | disposition home or self-care (01) ==
LOC: C.ER 06:45 → C.9OBSV 07:54
PROVIDERS: ADMIT Emergency Medicine; ATTEND Emergency Medicine
DX: R33.9 Retention of urine, unspecified (principal); R31.9 Hematuria, unspecified
CPT/HCPCS: 81001; 87086; G0378